=== PATIENT | male | born 1950 | race Caucasian/White ===

== ENCOUNTER 2017-08-19 11:29 | Emergency (ER) | payer OTHER, MEDICARE ==
[2017-08-19 11:36] VITALS: BP 146/72
[2017-08-19] MEDS ORDERED: HYDROCODONE/ACETAMINOPHEN 5-325 MG TABLET PO ONE (12:11)
[2017-08-19] MEDS ORDERED: PREDNISONE 20 MG TABLET PO ONE (12:11)
--- NOTE | 2017-08-19 12:14 | ER Document Report ---
ED Flu Like - General Chief Complaint: Flu Symptoms Stated Complaint: FLU SYMPTOMS Time Seen by Provider: 08/19/17 11:53 Mode of Arrival: Ambulatory Information source: Patient, [facility] Records Notes: This 67-year-old male patient comes emergency room complaining of a 9 day history of cough and congestion. He was in [place] when it started and came back just before [place]. He went to an urgent care on 08/15/2017, was diagnosed with a virus and prescribed Tessalon Perles and a Z-Tim. He has not improved. He reports clear mucus without fever. He has now developed pain in the left upper medial scapular back region. He suspects this may be due to all the coughing he has been doing. TRAVEL OUTSIDE OF THE [place] IN LAST 30 DAYS: No - Related Data Allergies/Adverse Reactions: Penicillins Allergy (Unknown, Verified 08/19/17 11:31) as child Past Medical History - General Information source: Patient, [facility] Records - Social History Smoking Status: Never Smoker Cigarette use (# per day): No Chew tobacco use (# tins/day): No Smoking Education Provided: No Frequency of alcohol use: None Drug Abuse: None Occupation: Retired Family History: Reviewed & Not Pertinent Patient has suicidal ideation: No Patient has homicidal ideation: No - Past Medical History Cardiac Medical History: Reports: Hx Hypercholesterolemia, Hx Hypertension Pulmonary Medical History: Reports: None EENT Medical History: Reports: None Neurological Medical History: Reports: None Endocrine Medical History: Reports: None Renal/ Medical History: Reports: None GI Medical History: Reports: None Musculoskeltal Medical History: Reports Hx Arthritis, Reports Hx Gout Skin Medical History: Reports None Psychiatric Medical History: Reports: None Traumatic Medical History: Reports: Other - Shoulder rotator cuff injury Past Surgical History: Reports: Hx Cholecystectomy, Hx Herniorrhaphy - Ventral hernia, Hx Inguinal Hernia - Left inguinal hernia, Hx Orthopedic Surgery - Carpal tunnel release - Immunizations Hx Diphtheria, Pertussis, Tetanus Vaccination: Yes Review of Systems - Review of Systems Constitutional: No symptoms reported. denies: Fever EENT: No symptoms reported Cardiovascular: No symptoms reported Respiratory: See HPI, Cough, Sputum Gastrointestinal: No symptoms reported Genitourinary: No symptoms reported Musculoskeletal: No symptoms reported Skin: No symptoms reported Hematologic/Lymphatic: No symptoms reported Neurological/Psychological: No symptoms reported Physical Exam - Vital signs Vitals: Temp Pulse Resp BP Pulse Ox 98.2 F 76 16 146/72 H 97 08/19/17 11:35 08/19/17 11:35 08/19/17 11:35 08/19/17 11:35 08/19/17 11:35 - General General appearance: Appears well, Alert In distress: None - HEENT Head: Normocephalic, Atraumatic Eyes: Normal Pupils: PERRL Neck: Normal - Respiratory Respiratory status: No respiratory distress Breath sounds: Nonproductive cough. No: Rhonchi, Stridor, Wheezing Chest palpation: Tender - There is some tenderness to palpate the left posterior chest in the inferior medial scapular region. - Cardiovascular Rhythm: Regular - Abdominal Inspection: Normal Distension: No distension Tenderness: Nontender - Back Back: Normal - Extremities General upper extremity: Normal inspection General lower extremity: Normal inspection - Neurological Neuro grossly intact: Yes Cognition: Normal Orientation: AAOx4 [place] Coma Scale Eye Opening: Spontaneous [place] Coma Scale Verbal: Oriented [place] Coma Scale Motor: Obeys Commands [place] Coma Scale Total: 15 Speech: Normal Motor strength normal: LUE, RUE, LLE, RLE Sensory: Normal - Psychological Associated symptoms: Normal affect, Normal mood Course - Vital Signs Vital signs: Temp Pulse Resp BP Pulse Ox 98.2 F 76 16 146/72 H 97 08/19/17 11:35 08/19/17 11:35 08/19/17 11:35 08/19/17 11:35 08/19/17 11:35 - Laboratory Result Diagrams: 08/19/17 12:30 08/19/17 12:30 Laboratory results interpreted by me: 08/19/17 08/19/17 12:30 12:30 RDW 14.9 H Carbon Dioxide 33 H BUN 21 H Est GFR (Non-Af Amer) 59 L - Diagnostic Test Radiology reviewed: Image reviewed, Reports reviewed - New right lower lobe airspace disease probably a developing pneumonia Discharge - Discharge Clinical Impression: Viral upper respiratory tract infection with cough Right lower lobe pneumonia Qualifiers: Pneumonia type: due to unspecified organism Qualified Code(s): J18.1 - Lobar pneumonia, unspecified organism Condition: Stable Disposition: HOME, SELF-CARE Additional Instructions: Upper Respiratory Illness You have a viral infection of the respiratory passages -- a "cold." This common infection causes nasal congestion, drainage, and often sore throat and cough. It is caused by a virus and is highly contagious. The disease usually lasts a week or more, though the worst symptoms are usually over in 3 or 4 days. There is no "cure" for the viral infection -- it must run its course. If there is a complication, such as bacterial infection in the nose, sinuses, middle ear, or bronchial tubes, antibiotics may be required, but antibiotics won 't affect the virus. If you smoke, you should STOP!! Drink plenty of fluids. A humidifier may help. An expectorant medication or decongestant may make you more comfortable. Use acetaminophen or ibuprofen for fever or aches. See the doctor if fever persists over two or three days, if there is any significant worsening of your symptoms, or if you simply fail to improve as expected. Pneumonia: Your chest x-ray indicates that you are developing pneumonia your right lower lung region. This is an infection of the lung tissue, usually caused by bacteria or a virus. Symptoms include cough, fever, shaking chills, chest pain, shortness of breath, and coughing up bloody sputum. Treatment for bacterial pneumonia includes rest, antibiotics for 10 days, increasing your clear liquid intake, a cool mist humidifier at your bedside, and fever medication. Often, a repeat chest X-ray is performed in a few weeks-- even if you feel better--to ascertain whether the infection has completely resolved and no underlying lung problem is present. You should call the physician if you develop persistent vomiting, high fever that does not respond to fever medication, increasing shortness of breath , confusion, or lethargy. Also, failure to improve within two to three days is an indication for re-examination. //////////////////////////////////////////////////////////////////////////////// //////////////////////////////////////////////////////////////////////////////// / Start the Doxycycline antibiotic today. Start the prednisone prescription tomorrow, you have had today's dose already. Take the hydrocodone prescription to help control your cough and back pain. You should also take Tylenol and ibuprofen for the back pain. Get Robitussin-DM to take to help suppress your cough and loosen mucus. Drink plenty of fluids, get plenty of rest. Follow-up with your primary care provider in 10-14 days for recheck, sooner if not improving. RETURN TO THE EMERGENCY ROOM IF ANY NEW OR WORSENING SYMPTOMS. Prescriptions: Doxycycline Hyclate 100 mg PO BID #20 tablet Hydrocodone/Acetaminophen [Hydrocodon-Acetaminophen 5-325] 1 each PO Q4 PRN #15 tablet PRN Reason:
[2017-08-19 12:42] LABS: ABSOLUTE EOSINOPHILS # (AUTO) 0.2 10^3/uL (0.0-0.6); ABSOLUTE MONOCYTES (AUTO) 0.5 10^3/uL (0.1-1.4); BASOPHILS % (AUTO) 0.7 % (0-2); EOSINOPHILS % (AUTO) 2.6 % (0-6); HEMATOCRIT 42.4 % (37.9-51.0); HEMOGLOBIN 14.5 g/dL (13.5-17.0); LYMPHOCYTES % (AUTO) 29.4 % (13-45); MEAN CORPUSCULAR HGB CONC 34.1 g/dL (32.0-36.0); MEAN CORPUSCULAR VOLUME 85 fl (80-97); PLATELET COUNT 244 10^3/uL (150-450); RED BLOOD COUNT 4.99 10^6/uL (4.35-5.55); RED CELL DISTRIBUTION WIDTH 14.9 % (11.5-14.0); SEGMENTED NEUTROPHILS % (AUTO) 59.3 % (42-78); TOTAL CELLS COUNTED % (AUTO) 100 %; WHITE BLOOD COUNT 6.8 10^3/uL (4.0-10.5)
--- NOTE | 2017-08-19 12:52 | RADIOLOGY REPORT (SQ) ---
EXAM DESCRIPTION: CHEST PA/LAT COMPLETED DATE/TIME: 08/19/2017 12:41 pm REASON FOR STUDY: Cough, congestion, left posterior chest pain COMPARISON: 05/01/2016 EXAM PARAMETERS: NUMBER OF VIEWS: two views TECHNIQUE: Digital Frontal and Lateral radiographic views of the chest acquired. RADIATION DOSE: NA LIMITATIONS: none FINDINGS: LUNGS AND PLEURA: Stable scarring left lung base. New right lower lobe airspace disease c ompatible with pneumonia. MEDIASTINUM AND HILAR STRUCTURES: No masses or contour abnormalities. HEART AND VASCULAR STRUCTURES: Heart stable in size. No evidence for failure. BONES: No acute findings. HARDWARE: None in the chest. OTHER: No other significant finding. IMPRESSION: NEW RIGHT LOWER LOBE AIRSPACE DISEASE COMPATIBLE WITH PNEUMONIA. RECOMMEND FOLLOWUP RAD IOGRAPHS IN 4 TO 6 WEEKS TO ENSURE RESOLUTION. TECHNICAL DOCUMENTATION: JOB ID: [id number] [employer]- All Rights Reserved
[2017-08-19 12:58] LABS: ALANINE AMINOTRANSFERASE 24 U/L (21-72); ALBUMIN 4.4 g/dL (3.5-5.0); ALKALINE PHOSPHATASE 68 U/L (38-126); ANION GAP 11 (5-19); ASPARTATE AMINO TRANSFERASE 21 U/L (17-59); BILIRUBIN,DIRECT 0.2 mg/dL (0.0-0.4); BILIRUBIN,TOTAL 0.6 mg/dL (0.2-1.3); BLOOD UREA NITROGEN 21 mg/dL (7-20); CALCIUM 9.9 mg/dL (8.4-10.2); CARBON DIOXIDE 33 mmol/L (22-30); CHLORIDE 100 mmol/L (98-107); GLUCOSE 91 mg/dL (75-110); POTASSIUM 4.2 mmol/L (3.6-5.0); SODIUM 143.6 mmol/L (137-145); TOTAL PROTEIN 7.4 g/dL (6.3-8.2)
[2017-08-19] MEDS ORDERED: INFLUENZA ADLT QUAD (36MOS+) 2017-18 VAC 0.5 ML SYR IM ONE (13:49)
== END 2017-08-19 14:00 | disposition home or self-care (01) ==
LOC: ER 11:29
DX: J18.1 Lobar pneumonia, unspecified organism (principal); J06.9 Acute upper respiratory infection, unspecified; B97.89 Other viral agents as the cause of diseases classified elsewhere; Z23 Encounter for immunization; R05 Cough; M54.89 Other dorsalgia; Z88.0 Allergy status to penicillin; I10 Essential (primary) hypertension
CPT/HCPCS: 99283; 36415; 85025; 80053; 71046; 90686; G0008; J7512; 90471

== ENCOUNTER 2018-02-08 10:24 | Emergency (ER) | payer OTHER, MEDICARE, MEDICAID ==
--- NOTE | 2018-02-08 10:56 | ER Document Report ---
ED Medical Screen (RME) - General Chief Complaint: Flank Pain Stated Complaint: FLANK PAIN Time Seen by Provider: 02/08/18 10:36 Mode of Arrival: Ambulatory Information source: Patient Notes: 67-year-old male presents with complaints of constipation has been ongoing for a while as well as 2 weeks of left flank pain. Patient notes it hurts with range of motion denies any urinary complaints denies any fevers or chills I have greeted and performed a rapid initial assessment of this patient. A comprehensive ED assessment and evaluation of the patient, analysis of test results and completion of the medical decision making process will be conducted by additional ED providers. PHYSICAL EXAMINATION: GENERAL: Well-appearing, well-nourished and in no acute distress. HEAD: Atraumatic, normocephalic. EYES: Pupils equal round extraocular movements intact, conjunctiva are normal. ENT: Nares patent NECK: Normal range of motion LUNGS: No respiratory distress Musculoskeletal: Normal range of motion NEUROLOGICAL: Normal speech, normal gait. PSYCH: Normal mood, normal affect. SKIN: Warm, Dry, normal turgor, no rashes or lesions noted. TRAVEL OUTSIDE OF THE [place] IN LAST 30 DAYS: No - Related Data Allergies/Adverse Reactions: Penicillins Allergy (Unknown, Verified 08/19/17 11:31) as child Past Medical History - Social History Chew tobacco use (# tins/day): No Frequency of alcohol use: Occasional Drug Abuse: None - Past Medical History Cardiac Medical History: Reports: Hx Hypercholesterolemia, Hx Hypertension Neurological Medical History: Denies: Hx Seizures Renal/ Medical History: Denies: Hx Peritoneal Dialysis Musculoskeltal Medical History: Reports Hx Arthritis, Reports Hx Gout Past Surgical History: Reports: Hx Cholecystectomy, Hx Herniorrhaphy - Ventral hernia, Hx Inguinal Hernia - Left inguinal hernia, Hx Orthopedic Surgery - Carpal tunnel release - Immunizations Hx Diphtheria, Pertussis, Tetanus Vaccination: Yes Physical Exam - Vital signs Vitals: Temp Pulse Resp BP Pulse Ox 98.6 F 68 16 155/76 H 95 02/08/18 10:29 02/08/18 10:29 02/08/18 10:29 02/08/18 10:29 02/08/18 10:29 Course - Vital Signs Vital signs: Temp Pulse Resp BP Pulse Ox 98.6 F 68 16 155/76 H 95 02/08/18 10:29 02/08/18 10:29 02/08/18 10:29 02/08/18 10:29 02/08/18 10:29
[2018-02-08 11:25] LABS: ABSOLUTE BASOPHILS # (AUTO) 0.1 10^3/uL (0.0-0.2); ABSOLUTE EOSINOPHILS # (AUTO) 0.1 10^3/uL (0.0-0.6); ABSOLUTE MONOCYTES (AUTO) 0.6 10^3/uL (0.1-1.4); BASOPHILS % (AUTO) 0.9 % (0-2); EOSINOPHILS % (AUTO) 1.6 % (0-6); HEMATOCRIT 43.2 % (37.9-51.0); HEMOGLOBIN 15.1 g/dL (13.5-17.0); LYMPHOCYTES % (AUTO) 26.1 % (13-45); MEAN CORPUSCULAR HEMOGLOBIN 29.9 pg (27.0-33.4); MEAN CORPUSCULAR HGB CONC 34.9 g/dL (32.0-36.0); MEAN CORPUSCULAR VOLUME 86 fl (80-97); MONOCYTES % (AUTO) 7.8 % (3-13); PLATELET COUNT 243 10^3/uL (150-450); RED BLOOD COUNT 5.04 10^6/uL (4.35-5.55); RED CELL DISTRIBUTION WIDTH 14.4 % (11.5-14.0); SEGMENTED NEUTROPHILS % (AUTO) 63.6 % (42-78); TOTAL CELLS COUNTED % (AUTO) 100 %; WHITE BLOOD COUNT 7.8 10^3/uL (4.0-10.5)
[2018-02-08 11:30] LABS: APPEARANCE,URINE SLIGHTLY-CLOUDY; BILIRUBIN,URINE NEGATIVE (NEGATIVE); COLOR,URINE AMBER; GLUCOSE, URINE NEGATIVE (NEGATIVE); KETONES,URINE NEGATIVE (NEGATIVE); LEUKOCYTE ESTERASE,URINE NEGATIVE (NEGATIVE); NITRITE,URINE NEGATIVE (NEGATIVE); PROTEIN,URINE 100 mg/dL (NEGATIVE); URINE SPECIFIC GRAVITY 1.026
--- NOTE | 2018-02-08 11:30 | RADIOLOGY REPORT (SQ) ---
EXAM DESCRIPTION: CT LTD RENAL STONE PROTOCOL ON COMPLETED DATE/TIME: 02/08/2018 11:16 am REASON FOR STUDY: left flank pain, constipation COMPARISON: 2016 TECHNIQUE: CT scan of the abdomen and pelvis performed without intravenous or oral contrast. Images reviewed with lung, soft tissue, and bone windows. Reconstructed coronal and sagittal MPR images revi ewed. All images stored on PACS. All CT scanners at this facility use dose modulation, iterative reconstruction, and/or weight based d osing when appropriate to reduce radiation dose to as low as reasonably achievable (ALARA). [facility]: Dose Right [facility]: CareDose [facility]: Dose Right [facility]: Teradose 4D [facility]: [employer] RADIATION DOSE: CT Rad equipment meets quality standard of care and radiation dose reduction techniq ues were employed. CTDIvol: 16.9 mGy. DLP: 938 mGy-cm.mGy. LIMITATIONS: None. FINDINGS: LOWER CHEST: No significant findings. No nodules or infiltrates. NON-CONTRASTED LIVER, SPLEEN, ADRENALS: Probable small cysts in the liver. No overtly worrisome lesi on. Limited assessment of the spleen, minimally heterogeneous but without discrete mass or enlargeme nt. No adrenal pathology. PANCREAS: No masses. No peripancreatic inflammatory changes. GALLBLADDER: Not seen, either contracted or absent. No surgical clips or regional calcifications. RIGHT KIDNEY AND URETER: No solid masses. No significant calcification. No hydronephrosis or hydroure ter. LEFT KIDNEY AND URETER: No solid masses. No significant calcification. No hydronephrosis or hydrouret er. AORTA AND RETROPERITONEUM: Atherosclerotic without evidence of aneurysm. No retroperitoneal mass or hematoma. BOWEL AND PERITONEAL CAVITY: No obvious masses or inflammatory changes. No free fluid. APPENDIX: Normal. PELVIS, BLADDER, AND ABDOMINAL WALL:Bladder decompressed but without gross stones. No pelvic mass or free fluid. No bowel containing abdominal wall hernia. BONES: No significant findings. OTHER: No other significant finding. IMPRESSION: 1. No acute or suspicious abdominopelvic abnormality. Specifically, no evidence of urin isabell stones or obstruction. TECHNICAL DOCUMENTATION: JOB ID: [id number] Quality ID # [id number]: Final reports with documentation of one or more dose reduction techniques (e.g., Au tomated exposure control, adjustment of the mA and/or kV according to patient size, use of iterative reconstruction technique) 2010 [employer]- All Rights Reserved Reading location - IP/workstation name: [email or web address]
[2018-02-08 11:42] LABS: ALANINE AMINOTRANSFERASE 23 U/L (21-72); ALBUMIN 4.3 g/dL (3.5-5.0); ALKALINE PHOSPHATASE 79 U/L (38-126); ANION GAP 9 (5-19); ASPARTATE AMINO TRANSFERASE 22 U/L (17-59); BILIRUBIN,DIRECT 0.4 mg/dL (0.0-0.4); BILIRUBIN,TOTAL 0.7 mg/dL (0.2-1.3); BLOOD UREA NITROGEN 24 mg/dL (7-20); CALCIUM 9.3 mg/dL (8.4-10.2); CARBON DIOXIDE 34 mmol/L (22-30); CHLORIDE 101 mmol/L (98-107); GLUCOSE 93 mg/dL (75-110); POTASSIUM 3.9 mmol/L (3.6-5.0); SODIUM 144.1 mmol/L (137-145); TOTAL PROTEIN 7.6 g/dL (6.3-8.2)
[2018-02-08 11:56] VITALS: BP 164/72
--- NOTE | 2018-02-08 11:57 | ER Document Report ---
ED General - General Chief Complaint: Flank Pain Stated Complaint: FLANK PAIN Time Seen by Provider: 02/08/18 10:36 Mode of Arrival: Ambulatory Information source: Patient Notes: 67-year-old male presents with complaints of constipation has been ongoing for a while as well as 2 weeks of left flank pain. Patient notes it hurts with range of motion denies any urinary complaints denies any fevers or chills TRAVEL OUTSIDE OF THE [place] IN LAST 30 DAYS: No - HPI Onset: Other - 2 week duration Onset/Duration: Persistent Quality of pain: Achy Severity: Mild Pain Level: 1 Associated symptoms: Body/muscle aches Exacerbated by: Movement Relieved by: Denies Similar symptoms previously: No Recently seen / treated by doctor: No - Related Data Allergies/Adverse Reactions: Penicillins Allergy (Unknown, Verified 08/19/17 11:31) as child Past Medical History - General Information source: Patient - Social History Smoking Status: Never Smoker Cigarette use (# per day): No Chew tobacco use (# tins/day): No Smoking Education Provided: No Frequency of alcohol use: Occasional Drug Abuse: None Family History: Reviewed & Not Pertinent Patient has suicidal ideation: No Patient has homicidal ideation: No - Past Medical History Cardiac Medical History: Reports: Hx Hypercholesterolemia, Hx Hypertension Neurological Medical History: Denies: Hx Seizures Renal/ Medical History: Denies: Hx Peritoneal Dialysis Musculoskeltal Medical History: Reports Hx Arthritis, Reports Hx Gout Past Surgical History: Reports: Hx Cholecystectomy, Hx Herniorrhaphy - Ventral hernia, Hx Inguinal Hernia - Left inguinal hernia, Hx Orthopedic Surgery - Carpal tunnel release - Immunizations Hx Diphtheria, Pertussis, Tetanus Vaccination: Yes Review of Systems - Review of Systems Notes: REVIEW OF SYSTEMS: CONSTITUTIONAL : Denies fever, chills, or sweats. Denies recent illness. EENT: Denies eye, ear, throat, or mouth pain or symptoms. Denies nasal or sinus congestion or discharge. Denies throat, tongue, or mouth swelling or difficulty swallowing. CARDIOVASCULAR: Denies chest pain. Denies palpitations or racing or irregular heart beat. Denies ankle edema. RESPIRATORY: Denies cough, cold, or chest congestion. Denies shortness of breath, difficulty breathing, or wheezing. GASTROINTESTINAL: Denies abdominal pain or distention. Denies nausea, vomiting , or diarrhea. Denies blood in vomitus, stools, or per rectum. Denies black, tarry stools. Denies constipation. GENITOURINARY: Denies difficulty urinating, painful urination, burning, frequency, blood in urine, or discharge. MUSCULOSKELETAL: Admits to flank pain SKIN: Denies rash, lesions or sores. HEMATOLOGIC : Denies easy bruising or bleeding. LYMPHATIC: Denies swollen, enlarged glands. NEUROLOGICAL: Denies confusion or altered mental status. Denies passing out or loss of consciousness. Denies dizziness or lightheadedness. Denies headache. Denies weakness or paralysis or loss of use of either side. Denies problems with gait or speech. Denies sensory loss, numbness, or tingling. Denies seizures. PSYCHIATRIC: Denies anxiety or stress. Denies depression, suicidal ideation, or homicidal ideation. ALL OTHER SYSTEMS REVIEWED AND NEGATIVE. Dictation was performed using [employer] voice recognition software PHYSICAL EXAMINATION: GENERAL: Well-appearing, well-nourished and in no acute distress. HEAD: Atraumatic, normocephalic. EYES: Pupils equal round and reactive to light, extraocular movements intact, sclera anicteric, conjunctiva are normal. ENT: Nares patent, oropharynx clear without exudates. Moist mucous membranes. NECK: Normal range of motion, supple without lymphadenopathy LUNGS: Breath sounds clear to auscultation bilaterally and equal. No wheezes rales or rhonchi. HEART: Regular rate and rhythm without murmurs ABDOMEN: Soft, nontender, nondistended abdomen. No guarding, no rebound. No masses appreciated. Musculoskeletal: Normal range of motion, no pitting or edema. No cyanosis. Pain with range of motion of the left flank NEUROLOGICAL: Cranial nerves grossly intact. Normal speech, normal gait. Normal sensory, motor exams PSYCH: Normal mood, normal affect. SKIN: Warm, Dry, normal turgor, no rashes or lesions noted. Physical Exam - Vital signs Vitals: Temp Pulse Resp BP Pulse Ox 98.6 F 68 16 155/76 H 95 02/08/18 10:29 02/08/18 10:29 02/08/18 10:29 02/08/18 10:29 02/08/18 10:29 Course - Re-evaluation Re-evalutation: 02/08/18 12:15 Patient's lab work notes only a mild elevation in his creatinine and BUN, patient encouraged to increase his fluid intake, his CT noted no significant abnormality, he overall looks well is in no distress, patient does note some constipation as well he has been taking mag citrate and has been encouraged to not take more than a few days worth in a row, there is no FDA evaluation of this medication and I explained this to the patient. Overall this appears to be more of a musculoskeletal issue and patient will be started on prednisone After performing a Medical Screening Examination, I estimate there is LOW risk for EXPANDING OR RUPTURED ABDOMINAL AORTIC ANEURYSM, CAUDA EQUINA SYNDROME, EPIDURAL MASS LESION, or HERNIATED DISK CAUSING SEVERE SPINAL STENOSIS, thus I consider the discharge disposition reasonable. I have reevaluated this patient multiple times and no significant life threatening changes are noted. The patient and I have discussed the diagnosis and risks, and we agree with discharging home and close follow-up. We also discussed returning to the Emergency Department immediately if new or worsening symptoms occur with the understanding that symptoms and presentations can change. We have discussed the symptoms which are most concerning (e.g., saddle anesthesia, urinary or bowel incontinence or retention, changing or worsening pain) that necessitate immediate return. - Vital Signs Vital signs: Temp Pulse Resp BP Pulse Ox 98.7 F 64 16 164/72 H 98 02/08/18 11:55 02/08/18 11:55 02/08/18 10:29 02/08/18 11:55 02/08/18 11:55 - Laboratory Result Diagrams: 02/08/18 10:59 02/08/18 10:59 Laboratory results interpreted by me: 02/08/18 02/08/18 02/08/18 10:59 10:59 10:59 RDW 14.4 H Carbon Dioxide 34 H BUN 24 H Creatinine 1.27 H Est GFR (Non-Af Amer) 57 L Urine Protein 100 H Urine Urobilinogen 2.0 H - Diagnostic Test Radiology reviewed: Reports reviewed Discharge - Discharge Clinical Impression: Flank pain Constipation Qualifiers: Constipation type: unspecified constipation type Qualified Code(s): K59.00 - Constipation, unspecified Condition: Stable Disposition: HOME, SELF-CARE Instructions: Flank Pain ([facility]) Additional Instructions: Follow up with your physician tomorrow for further care or return to the ED IMMEDIATELY if symptoms worsen or new concerns occur. If you cannot afford to follow up with your primary care physician a list of low cost clinics have been provided at the end of your discharge papers as well. Prescriptions: Prednisone [Deltasone 20 mg Tablet] 3 tab PO DAILY 5 Days tablet
== END 2018-02-08 12:00 | disposition home or self-care (01) ==
LOC: ER 10:24
DX: R10.9 Unspecified abdominal pain (principal); K59.00 Constipation, unspecified; M79.1 Myalgia; E78.00 Pure hypercholesterolemia, unspecified; I10 Essential (primary) hypertension; Z88.0 Allergy status to penicillin; Z90.49 Acquired absence of other specified parts of digestive tract
CPT/HCPCS: 36415; 76380; 80053; 81001; 85025; 99284

== ENCOUNTER 2018-02-16 11:09 | Emergency (ER) | payer OTHER, MEDICARE, MEDICAID ==
--- NOTE | 2018-02-16 11:26 | ER Document Report ---
ED Medical Screen (RME) - General Chief Complaint: Flank Pain Stated Complaint: LEFT SIDE PAIN Time Seen by Provider: 02/16/18 11:23 Mode of Arrival: Ambulatory Information source: Patient Notes: 67 yr old male presents with complaints of continued left flank pain. pt seen by myself, noted to have normal ua and negative ct pt ntoes continued pain only with rom Patient denies any fevers or chills denies any nausea vomiting diarrhea patient denies any urinary complaints I have greeted and performed a rapid initial assessment of this patient. A comprehensive ED assessment and evaluation of the patient, analysis of test results and completion of the medical decision making process will be conducted by additional ED providers. PHYSICAL EXAMINATION: GENERAL: Well-appearing, well-nourished and in no acute distress. HEAD: Atraumatic, normocephalic. EYES: Pupils equal round extraocular movements intact, conjunctiva are normal. ENT: Nares patent NECK: Normal range of motion LUNGS: No respiratory distress Musculoskeletal: Normal range of motion NEUROLOGICAL: Normal speech, normal gait. PSYCH: Normal mood, normal affect. SKIN: Warm, Dry, normal turgor, no rashes or lesions noted. TRAVEL OUTSIDE OF THE [place] IN LAST 30 DAYS: No - Related Data Allergies/Adverse Reactions: Penicillins Allergy (Unknown, Verified 08/19/17 11:31) as child Past Medical History - Past Medical History Cardiac Medical History: Reports: Hx Hypercholesterolemia, Hx Hypertension Neurological Medical History: Denies: Hx Seizures Renal/ Medical History: Denies: Hx Peritoneal Dialysis Musculoskeltal Medical History: Reports Hx Arthritis, Reports Hx Gout Past Surgical History: Reports: Hx Cholecystectomy, Hx Herniorrhaphy - Ventral hernia, Hx Inguinal Hernia - Left inguinal hernia, Hx Orthopedic Surgery - Carpal tunnel release - Immunizations Hx Diphtheria, Pertussis, Tetanus Vaccination: Yes Physical Exam - Vital signs Vitals: Temp Pulse Resp BP Pulse Ox 98.5 F 69 16 130/57 H 96 02/16/18 11:13 02/16/18 11:13 02/16/18 11:13 02/16/18 11:13 02/16/18 11:13 Course - Vital Signs Vital signs: Temp Pulse Resp BP Pulse Ox 98.5 F 69 16 130/57 H 96 02/16/18 11:13 02/16/18 11:13 02/16/18 11:13 02/16/18 11:13 02/16/18 11:13
[2018-02-16 11:47] LABS: ABSOLUTE BASOPHILS # (AUTO) 0.1 10^3/uL (0.0-0.2); ABSOLUTE EOSINOPHILS # (AUTO) 0.2 10^3/uL (0.0-0.6); ABSOLUTE LYMPHOCYTES (AUTO) 2.1 10^3/uL (0.5-4.7); ABSOLUTE MONOCYTES (AUTO) 0.8 10^3/uL (0.1-1.4); ABSOLUTE NEUT (AUTO) 7.1 10^3/uL (1.7-8.2); EOSINOPHILS % (AUTO) 1.9 % (0-6); HEMATOCRIT 40.4 % (37.9-51.0); HEMOGLOBIN 13.9 g/dL (13.5-17.0); LYMPHOCYTES % (AUTO) 20.2 % (13-45); MEAN CORPUSCULAR HEMOGLOBIN 29.8 pg (27.0-33.4); MEAN CORPUSCULAR HGB CONC 34.5 g/dL (32.0-36.0); MEAN CORPUSCULAR VOLUME 87 fl (80-97); MONOCYTES % (AUTO) 7.7 % (3-13); PLATELET COUNT 224 10^3/uL (150-450); RED BLOOD COUNT 4.67 10^6/uL (4.35-5.55); RED CELL DISTRIBUTION WIDTH 14.8 % (11.5-14.0); SEGMENTED NEUTROPHILS % (AUTO) 69.2 % (42-78); TOTAL CELLS COUNTED % (AUTO) 100 %; WHITE BLOOD COUNT 10.2 10^3/uL (4.0-10.5)
[2018-02-16 12:02] LABS: ALANINE AMINOTRANSFERASE 22 U/L (21-72); ALBUMIN 3.9 g/dL (3.5-5.0); ALKALINE PHOSPHATASE 65 U/L (38-126); ANION GAP 11 (5-19); ASPARTATE AMINO TRANSFERASE 13 U/L (17-59); BILIRUBIN,DIRECT 0.3 mg/dL (0.0-0.4); BILIRUBIN,TOTAL 0.7 mg/dL (0.2-1.3); BLOOD UREA NITROGEN 30 mg/dL (7-20); CALCIUM 8.6 mg/dL (8.4-10.2); CARBON DIOXIDE 30 mmol/L (22-30); CHLORIDE 103 mmol/L (98-107); GLUCOSE 133 mg/dL (75-110); POTASSIUM 3.7 mmol/L (3.6-5.0); SODIUM 143.5 mmol/L (137-145); TOTAL PROTEIN 6.5 g/dL (6.3-8.2)
[2018-02-16 12:03] LABS: APPEARANCE,URINE CLEAR; BILIRUBIN,URINE NEGATIVE (NEGATIVE); COLOR,URINE YELLOW; GLUCOSE, URINE 50 mg/dL (NEGATIVE); KETONES,URINE NEGATIVE (NEGATIVE); LEUKOCYTE ESTERASE,URINE NEGATIVE (NEGATIVE); NITRITE,URINE NEGATIVE (NEGATIVE); PROTEIN,URINE NEGATIVE (NEGATIVE); UROBILINOGEN,URINE NEGATIVE mg/dL (<2.0)
--- NOTE | 2018-02-16 12:33 | ER Document Report ---
ED General <SOLE AVILA - Last Filed: 02/16/18 12:34> - General Mode of Arrival: Ambulatory Information source: Patient TRAVEL OUTSIDE OF THE [place] IN LAST 30 DAYS: No <KIA AZEVEDO - Last Filed: 02/16/18 12:45> - General Chief Complaint: Flank Pain Stated Complaint: LEFT SIDE PAIN Time Seen by Provider: 02/16/18 11:23 Notes: Patient is a 67 year old male with HTN, hyperlipidemia, and a history of gout presents to the emergency department complaining of left flank pain onset approximately 2.5 weeks ago. Patient was seen and discharged from this ED on for a similar complaint. During that time a negative urinalysis and CT scan was obtained. Patient states he only notices the pain randomly with certain movements. Patient denies fevers, chills, nausea, vomiting, or dysuria. (KIA AZEVEDO) - Related Data Allergies/Adverse Reactions: Penicillins Allergy (Unknown, Verified 02/16/18 11:26) as child Past Medical History - General Information source: Patient - Social History Smoking Status: Never Smoker Chew tobacco use (# tins/day): No Frequency of alcohol use: Occasional Drug Abuse: None Family History: Reviewed & Not Pertinent Patient has suicidal ideation: No Patient has homicidal ideation: No - Past Medical History Cardiac Medical History: Reports: Hx Hypercholesterolemia, Hx Hypertension Musculoskeltal Medical History: Reports Hx Arthritis, Reports Hx Gout Past Surgical History: Reports: Hx Cholecystectomy, Hx Herniorrhaphy - Ventral hernia, Hx Inguinal Hernia - Left inguinal hernia, Hx Orthopedic Surgery - Carpal tunnel release - Immunizations Hx Diphtheria, Pertussis, Tetanus Vaccination: Yes <KIA AZEVEDO - Last Filed: 02/16/18 12:45> Review of Systems - Review of Systems Constitutional: No symptoms reported EENT: No symptoms reported Cardiovascular: No symptoms reported Respiratory: No symptoms reported Gastrointestinal: No symptoms reported Genitourinary: See HPI, Flank pain Male Genitourinary: No symptoms reported Musculoskeletal: See HPI Skin: No symptoms reported Hematologic/Lymphatic: No symptoms reported Neurological/Psychological: No symptoms reported -: Yes All other systems reviewed and negative <KIA AZEVEDO - Last Filed: 02/16/18 12:45> Physical Exam - General General appearance: Appears well, Alert In distress: None - HEENT Head: Normocephalic, Atraumatic Eyes: Normal Conjunctiva: Normal Extraocular movements intact: Yes Pupils: PERRL Neck: Normal - Respiratory Respiratory status: No respiratory distress Chest status: Nontender Breath sounds: Normal Chest palpation: Normal - Cardiovascular Rhythm: Regular Heart sounds: Normal auscultation Murmur: No Friction rub: No Gallop: None auscultated - Abdominal Inspection: Obese - Back Back: Normal, Tender - Left flank point tender to palpation. No rashes or blisters. - Extremities General upper extremity: Normal ROM General lower extremity: Normal ROM - Neurological Neuro grossly intact: Yes Cognition: Normal Orientation: AAOx4 [place] Coma Scale Eye Opening: Spontaneous [place] Coma Scale Verbal: Oriented [place] Coma Scale Motor: Obeys Commands Dom[place] Coma Scale Total: 15 Speech: Normal - Psychological Associated symptoms: Normal affect, Normal mood - Skin Skin Temperature: Warm Skin Moisture: Dry Skin Color: Normal <KIA AZEVEDO - Last Filed: 02/16/18 12:45> - Vital signs Vitals: Temp Pulse Resp BP Pulse Ox 98.5 F 69 16 130/57 H 96 02/16/18 11:13 02/16/18 11:13 02/16/18 11:13 02/16/18 11:13 02/16/18 11:13 Course - Laboratory Result Diagrams: 02/16/18 11:35 02/16/18 11:35 <SOLE AVILA - Last Filed: 02/16/18 12:34> - Laboratory Result Diagrams: 02/16/18 11:35 02/16/18 11:35 <KIA AZEVEDO - Last Filed: 02/16/18 12:45> - Re-evaluation Re-evalutation: 02/16/18 12:37 The patient was extensively evaluated for the second time with lab work and urinalysis. 1 week ago he had a CT scan that showed no acute findings, showing only a known left renal cortical cyst. Physical exam a week ago and today is consistent with left flank muscle strain. Total CK is unremarkable as is the urinalysis and the CBC. (SOLE AVILA) - Vital Signs Vital signs: Temp Pulse Resp BP Pulse Ox 98.5 F 69 16 130/57 H 96 02/16/18 11:13 02/16/18 11:13 07/01/18 11:13 02/16/18 11:13 02/16/18 11:13 - Laboratory Laboratory results interpreted by me: 02/16/18 02/16/18 02/16/18 11:15 11:35 11:35 RDW 14.8 H BUN 30 H Glucose 133 H AST 13 L Urine Glucose (UA) 50 H Discharge <SOLE AVILA - Last Filed: 02/16/18 12:34> <KIA AZEVEDO - Last Filed: 02/16/18 12:45> - Discharge Clinical Impression: Pain in abdominal muscle of left flank Additional Instructions: Flank Pain: Pain in the flank can be caused by a muscle strain or spasm. Sometimes a kidney stone causes pain, but can't be found on our tests. Infection in the kidney should be evident on a urine test. Early shingles can occasionally cause flank pain, without the rash that proves the diagnosis. On rare occasions, disease of the pancreas, aorta, spleen, or colon can create pain in the flank. At this time, there's no evidence of a dangerous condition, and it seems safe for you to be at home. Blood in the urine, urgency to urinate frequently, and pain that radiates to the groin can indicate a kidney stone. Fever may mean that the pain is due to infection, either of the kidney or the colon (diverticulitis). If your pain is early shingles, you should develop an eruption of blisters in the painful area within a few days. Call the doctor or return if you have pain that is spreading or becoming more severe, pain that does not resolve with time, fever, or any other new symptoms. The pain in your left flank region seems to be coming from the muscles. This is probably due to a strain that occurred up to a week prior to the onset of the pain. Treating the pain with Tylenol and ibuprofen or Aleve should be adequate. Try to avoid activities that tends to make it hurt worse. Be sure to drink plenty of fluids when you are taking medication for your pain. Follow-up with your doctor if not improving over the next 1-2 weeks. RETURN TO THE EMERGENCY ROOM IF ANY NEW OR WORSENING SYMPTOMS. Milagrosibe Attestation: 02/16/18 12:38 I personally performed the services described in the documentation, reviewed and edited the documentation which was dictated to the scribe in my presence, and it accurately records my words and actions. (SOLE AVILA) Scribe Documentation - Scribe Written by Eduin:: Eduin Westbrook, 02/16/2018 12:45 acting as scribe for :: Zach <KIA AZEVEDO - Last Filed: 02/16/18 12:45>
[2018-02-16 12:43] VITALS: BP 133/61
== END 2018-02-16 12:43 | disposition home or self-care (01) ==
LOC: ER 11:09
DX: R10.9 Unspecified abdominal pain (principal); I10 Essential (primary) hypertension; E78.5 Hyperlipidemia, unspecified
CPT/HCPCS: 36415; 80053; 81001; 85025; 99284

== ENCOUNTER 2018-12-06 13:38 | Emergency (ER) | payer OTHER, MEDICARE ==
[2018-12-06] MEDS ORDERED: MORPHINE SULFATE 10 MG/ML INJ IV ONE (14:00)
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
--- NOTE | 2018-12-06 16:14 | RADIOLOGY REPORT (SQ) ---
EXAM DESCRIPTION: FINGER LEFT COMPLETED DATE/TIME: 12/06/2018 4:04 pm REASON FOR STUDY: 5th digit reduction attempt COMPARISON: 12/06/2018 NUMBER OF VIEWS: Three views. TECHNIQUE: AP, lateral, and oblique images acquired of the left fifth finger. LIMITATIONS: None. FINDINGS: MINERALIZATION: Normal. BONES: Slight improved alignment of the fractured proximal phalanx from the initial images. SOFT TISSUES: No soft tissue swelling. No foreign body. OTHER: No other significant finding. IMPRESSION: Slight improved alignment of the fractured proximal phalanx of the 5th digit compare wit h the initial images. TECHNICAL DOCUMENTATION: JOB ID: [id number] [employer]- All Rights Reserved Reading location - IP/workstation name: [email or web address]
[2018-12-06 16:43] VITALS: BP 114/60
== END 2018-12-06 16:44 | disposition home or self-care (01) ==
LOC: ER 13:38
PROC: 0PSVXZZ Reposition Left Finger Phalanx, External Approach (ICD-10-PCS; principal; 2018-12-06)
DX: S62.617A Displaced fracture of proximal phalanx of left little finger, initial encounter for closed fracture (principal); M25.532 Pain in left wrist; M79.642 Pain in left hand; V87.7XXA Person injured in collision between other specified motor vehicles (traffic), initial encounter; I10 Essential (primary) hypertension
CPT/HCPCS: 99283; 96374; 73140; 73130; 73110; 26725; J2270

== ENCOUNTER 2019-03-06 20:16 | Emergency (ER) | payer MEDICARE, OTHER ==
--- NOTE | 2019-03-06 21:20 | ER Document Report ---
ED Medical Screen (RME) - General Chief Complaint: Breathing Difficulty Stated Complaint: DIFFICULTY BREATHING Time Seen by Provider: 03/06/19 21:17 Primary Care Provider: [facility] [[facility]] - Follow up as needed Mode of Arrival: Ambulatory Information source: Patient Notes: Patient presents with a complaint of change in his breathing pattern that sta rted yesterday. Patient denies any cough cold symptoms nausea or vomiting. Patient denies any chest pain. hx: Gout, hypertension, cholecystectomy, hernia surgery I have greeted and performed a rapid initial assessment of this patient. A comprehensive ED assessment and evaluation of the patient, analysis of test results and completion of the medical decision making process will be conducted by additional ED providers. TRAVEL OUTSIDE OF THE [place] IN LAST 30 DAYS: No - Related Data Allergies/Adverse Reactions: Penicillins Allergy (Unknown, Verified 03/06/19 20:48) as child Past Medical History - Past Medical History Cardiac Medical History: Reports: Hx Hypercholesterolemia, Hx Hypertension Neurological Medical History: Denies: Hx Seizures Renal/ Medical History: Denies: Hx Peritoneal Dialysis Musculoskeltal Medical History: Reports Hx Arthritis, Reports Hx Gout Past Surgical History: Reports: Hx Cholecystectomy, Hx Herniorrhaphy - Ventral hernia, Hx Inguinal Hernia - Left inguinal hernia, Hx Orthopedic Surgery - Carpal tunnel release - Immunizations Hx Diphtheria, Pertussis, Tetanus Vaccination: Yes Physical Exam - Vital signs Vitals: Temp Pulse Resp BP Pulse Ox 98.3 F 73 16 149/72 H 96 03/06/19 20:22 03/06/19 20:22 03/06/19 20:22 03/06/19 20:22 03/06/19 20:22 - Respiratory Respiratory status: No respiratory distress. No: Labored, Tachypnea Breath sounds: Normal Chest palpation: Normal - Cardiovascular Rhythm: Regular Course - Vital Signs Vital signs: Temp Pulse Resp BP Pulse Ox 98.3 F 73 16 149/72 H 96 03/06/19 20:22 03/06/19 20:22 03/06/19 20:22 03/06/19 20:22 03/06/19 20:22 Doctor's Discharge - Discharge Referrals: [facility] [[facility]] - Follow up as needed
[2019-03-06 22:12] LABS: ABSOLUTE BASOPHILS # (AUTO) 0.1 10^3/uL (0.0-0.2); ABSOLUTE EOSINOPHILS # (AUTO) 0.1 10^3/uL (0.0-0.6); HEMOGLOBIN 14.4 g/dL (13.5-17.0); MEAN CORPUSCULAR VOLUME 87 fl (80-97); RED CELL DISTRIBUTION WIDTH 13.9 % (11.5-14.0); TOTAL CELLS COUNTED % (AUTO) 100 %; WHITE BLOOD COUNT 7.5 10^3/uL (4.0-10.5)
[2019-03-06 22:17] LABS: ABSOLUTE LYMPHOCYTES (AUTO) 2.2 10^3/uL (0.5-4.7); ABSOLUTE MONOCYTES (AUTO) 0.6 10^3/uL (0.1-1.4); ABSOLUTE NEUT (AUTO) 4.4 10^3/uL (1.7-8.2); BASOPHILS % (AUTO) 0.8 % (0-2); HEMATOCRIT 42.1 % (37.9-51.0); LYMPHOCYTES % (AUTO) 30.1 % (13-45); MEAN CORPUSCULAR HEMOGLOBIN 29.9 pg (27.0-33.4); MEAN CORPUSCULAR HGB CONC 34.3 g/dL (32.0-36.0); MONOCYTES % (AUTO) 8.2 % (3-13); PLATELET COUNT 231 10^3/uL (150-450); RED BLOOD COUNT 4.82 10^6/uL (4.35-5.55); SEGMENTED NEUTROPHILS % (AUTO) 58.9 % (42-78)
[2019-03-06 22:26] LABS: INTERNATIONAL RATION (INR) 1.04; PROTHROMBIN TIME 13.6 SEC (11.4-15.4)
[2019-03-06 22:27] LABS: PARTIAL THROMBOPLASTIN TIME 31.5 SEC (23.5-35.8)
[2019-03-06 22:31] LABS: ALANINE AMINOTRANSFERASE 19 U/L (21-72); ALBUMIN 4.4 g/dL (3.5-5.0); ALKALINE PHOSPHATASE 70 U/L (38-126); ANION GAP 9 (5-19); ASPARTATE AMINO TRANSFERASE 25 U/L (17-59); BILIRUBIN,DIRECT 0.3 mg/dL (0.0-0.4); BILIRUBIN,TOTAL 0.5 mg/dL (0.2-1.3); BLOOD UREA NITROGEN 30 mg/dL (7-20); CALCIUM 9.4 mg/dL (8.4-10.2); CARBON DIOXIDE 30 mmol/L (22-30); CHLORIDE 103 mmol/L (98-107); GLUCOSE 114 mg/dL (75-110); POTASSIUM 3.7 mmol/L (3.6-5.0); SODIUM 142.2 mmol/L (137-145); TOTAL PROTEIN 7.6 g/dL (6.3-8.2)
--- NOTE | 2019-03-06 22:41 | RADIOLOGY REPORT (SQ) ---
EXAM DESCRIPTION: XR CHEST 2 VIEWS COMPLETED DATE/TME: 03/06/2019 21:18 CLINICAL HISTORY: 68 years, Male, altered breathing pattern COMPARISON: 09/07/2017. NUMBER OF VIEWS: 2 TECHNIQUE: Two-view, PA and lateral projections of the chest were obtained. LIMITATIONS: None. FINDINGS: Stable cardiac and mediastinal silhouette. Heart size is mildly prominent. Tortuous atherosclerotic thoracic aorta. Lungs are clear without focal opacity, pneumothorax or pleural effusions. LEFT linear basilar opacity compatible with subsegmental atelectasis or scarring stable in comparison to the previous examination. The visualized bones reveal degenerative change. IMPRESSION: No acute cardiopulmonary abnormalities. copyright 2010 [employer]- All Rights Reserved
--- NOTE | 2019-03-06 23:28 | ER Document Report ---
ED General - General Chief Complaint: Breathing Difficulty Stated Complaint: DIFFICULTY BREATHING Time Seen by Provider: 03/06/19 21:17 Primary Care Provider: REENA CRUZ MD [ACTIVE STAFF] - Follow up as needed [facility] [Primary Care Provider] - Follow up as needed Mode of Arrival: Ambulatory TRAVEL OUTSIDE OF THE [place] IN LAST 30 DAYS: No - HPI Notes: Patient is a 68-year-old gentleman who presents to the emergency department for evaluation. He states he is just "not breathing right." I asked him if he means that he feels short of breath. He states no. He states he feels that he is breathing differently, or notice it more at rest. He denies any chest pain. No cough. No fevers or chills. No nausea or vomiting. States his been taking his medications as prescribed. - Related Data Allergies/Adverse Reactions: Penicillins Allergy (Unknown, Verified 03/06/19 20:48) as child Past Medical History - General Information source: Patient - Social History Smoking Status: Never Smoker Chew tobacco use (# tins/day): No Frequency of alcohol use: Occasional Drug Abuse: None Family History: Reviewed & Not Pertinent Patient has suicidal ideation: No Patient has homicidal ideation: No - Past Medical History Cardiac Medical History: Reports: Hx Hypercholesterolemia, Hx Hypertension Neurological Medical History: Denies: Hx Seizures Renal/ Medical History: Denies: Hx Peritoneal Dialysis Musculoskeletal Medical History: Reports Hx Arthritis, Reports Hx Gout Past Surgical History: Reports: Hx Cholecystectomy, Hx Herniorrhaphy - Ventral hernia, Hx Inguinal Hernia - Left inguinal hernia, Hx Orthopedic Surgery - Carpal tunnel release - Immunizations Hx Diphtheria, Pertussis, Tetanus Vaccination: Yes Review of Systems - Review of Systems Constitutional: No symptoms reported EENT: No symptoms reported Cardiovascular: No symptoms reported Respiratory: See HPI Gastrointestinal: No symptoms reported Genitourinary: No symptoms reported Musculoskeletal: No symptoms reported Skin: No symptoms reported Neurological/Psychological: No symptoms reported Physical Exam - Vital signs Vitals: Temp Pulse Resp BP Pulse Ox 98.3 F 73 16 149/72 H 96 03/06/19 20:22 03/06/19 20:22 03/06/19 20:22 03/06/19 20:22 03/06/19 20:22 - Notes Notes: Vital signs reviewed, please refer to chart. Head is normocephalic, atraumatic. Pupils equal round, reactive to light. Neck is supple without meningismus. Heart is irregularly irregular. Lungs are clear to auscultation bilaterally. Abdomen is soft, nontender, normoactive bowel sounds throughout. Extremities without cyanosis, clubbing. 1+ pitting edema noted to bilateral lower extremities without posterior calf tenderness. Peripheral pulses are equal. Skin is warm and dry. Patient is awake, alert, neurological exam is nonfocal. Course - Re-evaluation Re-evalutation: 03/06/19 23:24 Patient presents to the emergency department for evaluation. He was placed on a sales order processor and IV was established. Laboratory investigations were obtained, as was EKG. Initial EKG did have a mild wandering baseline. This was repeated. EKG does show new onset atrial fibrillation, but rate is controlled. This was a change from prior study. Patient relates no history of atrial fibrillation. At this time, he has no significant signs of fluid overload. His chest x-ray is normal. He is oxygenating well, 96% on room air. His respiratory rate is 18, effort is normal. We will consult cardiology. I believe at this time it is reasonable to treat patient with anticoagulants and close follow-up. - Vital Signs Vital signs: Temp Pulse Resp BP Pulse Ox 98.3 F 66 15 137/89 H 95 03/06/19 20:22 03/07/19 00:55 03/07/19 00:55 03/07/19 00:55 03/07/19 00:55 - Laboratory Result Diagrams: 03/06/19 21:50 03/06/19 21:50 Laboratory results interpreted by me: 03/06/19 21:50 BUN 30 H Creatinine 1.47 H Est GFR ( Amer) 58 L Est GFR (Non-Af Amer) 48 L Glucose 114 H ALT 19 L - Diagnostic Test Radiology reviewed: Reports reviewed Radiology results interpreted by me: 03/06/19 23:25 Chest X-Ray 03/06/19 21:18 IMPRESSION: No acute cardiopulmonary abnormalities. copyright 2010 [employer]- All Rights Reserved - EKG Interpretation by Me Additional EKG results interpreted by me: 03/06/19 23:25 Atrial fibrillation with a rate of 70 bpm. Left axis deviation. IVCD. Nonspecific ST changes, but no acute changes concerning for ischemia or infarction. This was changed from prior study. Repeat EKG shows less of wandering baseline, still atrial fibrillation and left axis deviation. Discharge - Discharge Clinical Impression: Atrial fibrillation Qualifiers: Atrial fibrillation type: unspecified Qualified Code(s): I48.91 - Unspecified atrial fibrillation Condition: Stable Disposition: HOME, SELF-CARE Instructions: Atrial Fibrillation ([facility]) Additional Instructions: It is vitally important that you take all of your medications as prescribed, at home and new. Start the Xarelto tomorrow evening. Contact Dr. Cruz's office first thing on Saturday, for an appointment to be seen within 48 hours. If you develop chest pain, difficulty breathing, or any other new or concerning symptoms, return immediately to the emergency department for evaluation. Prescriptions: Rivaroxaban [Xarelto] 20 mg PO DAILY #14 tablet Referrals: [facility] [Primary Care Provider] - Follow up as needed REENA CRUZ MD [ACTIVE STAFF] - Follow up as needed
[2019-03-06] MEDS ORDERED: RIVAROXABAN 10 MG TABLET PO ONE (23:32)
[2019-03-07] MEDS ORDERED: RIVAROXABAN 10 MG TABLET ONE (00:36)
[2019-03-07 01:13] VITALS: BP 137/89
--- NOTE | 2019-03-07 10:15 | EKG REPORT ---
SEVERITY:- ABNORMAL ECG - ATRIAL FIBRILLATION, V-RATE 55-84 LEFT AXIS DEVIATION PROBABLE LEFT VENTRICULAR HYPERTROPHY : Confirmed by: Ori Yañez MD 07-Mar-2019 10:15:12
--- NOTE | 2019-03-08 09:38 | EKG REPORT ---
SEVERITY:- ABNORMAL ECG - ATRIAL FIBRILLATION NONSPECIFIC IVCD WITH LAD LEFT VENTRICULAR HYPERTROPHY : Confirmed by: Ori Yañez MD 08-Mar-2019 09:37:48
== END 2019-03-07 00:55 | disposition home or self-care (01) ==
LOC: ER 20:16
DX: I48.91 Unspecified atrial fibrillation (principal); R06.9 Unspecified abnormalities of breathing; I10 Essential (primary) hypertension
CPT/HCPCS: 93005; 99285; 36415; 83735; 84443; 85025; 85610; 85730; 80053; 84484; 71046; 93010; A9270

== ENCOUNTER 2019-08-15 08:16 | Emergency (ER) | payer OTHER, MEDICARE ==
[2019-08-15 09:33] LABS: ABSOLUTE MONOCYTES (AUTO) 0.2 10^3/uL (0.1-1.4); ABSOLUTE NEUT (AUTO) 6.1 10^3/uL (1.7-8.2); BASOPHILS % (AUTO) 0.3 % (0-2); EOSINOPHILS % (AUTO) 0.7 % (0-6); HEMATOCRIT 42.4 % (37.9-51.0); HEMOGLOBIN 14.3 g/dL (13.5-17.0); LYMPHOCYTES % (AUTO) 13.8 % (13-45); MEAN CORPUSCULAR HEMOGLOBIN 28.4 pg (27.0-33.4); MEAN CORPUSCULAR HGB CONC 33.7 g/dL (32.0-36.0); MEAN CORPUSCULAR VOLUME 84 fl (80-97); MONOCYTES % (AUTO) 2.8 % (3-13); PLATELET COUNT 225 10^3/uL (150-450); RED BLOOD COUNT 5.03 10^6/uL (4.35-5.55); RED CELL DISTRIBUTION WIDTH 14.8 % (11.5-14.0); SEGMENTED NEUTROPHILS % (AUTO) 82.4 % (42-78); TOTAL CELLS COUNTED % (AUTO) 100 %; WHITE BLOOD COUNT 7.4 10^3/uL (4.0-10.5)
--- NOTE | 2019-08-15 09:43 | ER Document Report ---
ED Medical Screen (RME) - General Chief Complaint: Urinary Problem Stated Complaint: URINARY PROBLEMS Time Seen by Provider: 08/15/19 09:08 Primary Care Provider: SY,PAMELA [Primary Care Provider] - Follow up as needed Mode of Arrival: Ambulatory Information source: Patient Notes: Patient presents emergency department with complaints of hematuria for the last couple days. Denies pain. Denies problems voiding. Reports he recently was started on Xarelto 1 month ago. I have greeted and performed a rapid initial assessment of this patient. A comprehensive ED assessment and evaluation of the patient, analysis of test results and completion of the medical decision making process will be conducted by additional ED providers. TRAVEL OUTSIDE OF THE [place] IN LAST 30 DAYS: No - Related Data Allergies/Adverse Reactions: Penicillins Allergy (Unknown, Verified 08/15/19 08:58) as child Home Medications: potassium chloride. amlodipine besylate. amitriptyline. carvedilol. allopurinol. hydralazine. xarelto. lisinopril. prednisone. azithromycin Past Medical History - Social History Chew tobacco use (# tins/day): No Frequency of alcohol use: None Drug Abuse: None - Past Medical History Cardiac Medical History: Reports: Hx Hypercholesterolemia, Hx Hypertension Neurological Medical History: Denies: Hx Seizures Renal/ Medical History: Denies: Hx Peritoneal Dialysis Musculoskeltal Medical History: Reports Hx Arthritis, Reports Hx Gout Past Surgical History: Reports: Hx Cholecystectomy, Hx Herniorrhaphy - Ventral hernia, Hx Inguinal Hernia - Left inguinal hernia, Hx Orthopedic Surgery - Carpal tunnel release - Immunizations Hx Diphtheria, Pertussis, Tetanus Vaccination: Yes Physical Exam - Vital signs Vitals: Temp Pulse Resp BP Pulse Ox 98.4 F 69 16 150/68 H 96 08/15/19 08:43 08/15/19 08:43 08/15/19 08:43 08/15/19 08:43 08/15/19 08:43 Course - Vital Signs Vital signs: Temp Pulse Resp BP Pulse Ox 98.4 F 69 16 150/68 H 96 08/15/19 08:43 08/15/19 08:43 08/15/19 08:43 08/15/19 08:43 08/15/19 08:43 - Laboratory Result Diagrams: 08/15/19 09:15 08/15/19 09:15 Laboratory results interpreted by me: 08/15/19 09:15 RDW 14.8 H [place] % (Auto) 2.8 L Seg Neutrophils % 82.4 H Doctor's Discharge - Discharge Referrals: [facility] [Primary Care [facility]] - Follow up as needed
[2019-08-15 09:44] LABS: APPEARANCE,URINE CLOUDY; BILIRUBIN,URINE NEGATIVE (NEGATIVE); COLOR,URINE RED; GLUCOSE, URINE 50 mg/dL (NEGATIVE); KETONES,URINE NEGATIVE (NEGATIVE); LEUKOCYTE ESTERASE,URINE NEGATIVE (NEGATIVE); NITRITE,URINE NEGATIVE (NEGATIVE); PROTEIN,URINE 100 mg/dL (NEGATIVE); URINE SPECIFIC GRAVITY 1.017; UROBILINOGEN,URINE NEGATIVE mg/dL (<2.0)
[2019-08-15 09:54] LABS: ALBUMIN 4.4 g/dL (3.5-5.0); ALKALINE PHOSPHATASE 80 U/L (38-126); ANION GAP 13 (5-19); ASPARTATE AMINO TRANSFERASE 24 U/L (17-59); BILIRUBIN,DIRECT 0.3 mg/dL (0.0-0.4); BILIRUBIN,TOTAL 0.7 mg/dL (0.2-1.3); BLOOD UREA NITROGEN 20 mg/dL (7-20); CALCIUM 9.3 mg/dL (8.4-10.2); CARBON DIOXIDE 28 mmol/L (22-30); CHLORIDE 100 mmol/L (98-107); GLUCOSE 133 mg/dL (75-110); POTASSIUM 4.2 mmol/L (3.6-5.0); TOTAL PROTEIN 8.2 g/dL (6.3-8.2)
--- NOTE | 2019-08-15 10:44 | RADIOLOGY REPORT (SQ) ---
EXAM DESCRIPTION: U/S RETROPERITON LTD COMPLETED DATE/TIME: 08/15/2019 10:15 am REASON FOR STUDY: hematuria COMPARISON: CT 2018. TECHNIQUE: Dynamic and static grayscale images acquired of the kidneys and bladder and recorded on P ACS. Additional selected color Doppler and spectral images recorded. LIMITATIONS: None. FINDINGS: RIGHT KIDNEY: Normal size. Normal echogenicity. No solid or suspicious masses. No hydronep hrosis. No calcifications. LEFT KIDNEY: Normal size. Normal echogenicity. No solid or suspicious masses. Several cysts, larges t measuring just under 4 cm. Slight renal pelvic dilatation, just under 1 cm. No jose antonio hydronephros is, however. No hydronephrosis. No calcifications. BLADDER: Bladder volume 27 cc. No mass or stones, relatively nondistended. OTHER FINDINGS: Prostate measures 24 cc. IMPRESSION: NORMAL RENAL AND BLADDER ULTRASOUND. COMMENT: 1. No suspicious masses or stones or definite hydronephrosis, allowing for minimal left renal pelvic dilatation which is of uncertain clinical significance. TECHNICAL DOCUMENTATION: JOB ID: [id number] [employer]- All Rights Reserved Reading location - IP/workstation name: [email or web address]
--- NOTE | 2019-08-15 11:35 | ER Document Report ---
ED General - General Chief Complaint: Urinary Problem Stated Complaint: URINARY PROBLEMS Time Seen by Provider: 08/15/19 09:08 Primary Care Provider: SY,PAMELA [Primary Care Provider] - Follow up as needed Mode of Arrival: Ambulatory TRAVEL OUTSIDE OF THE [place] IN LAST 30 DAYS: No - HPI Notes: Patient is a 69-year-old male who presents emergency department for evaluation. He was started on Xarelto about 6 weeks ago for his atrial fibrillation. He has had a recent cough and upper respiratory infection, for which he states he has been given Zithromax and prednisone. He denies any fevers or chills. No flank pain. No vomiting. He denies any dysuria, urinary frequency. He states he just notices over the last several days that his urine has been more dark. He has been drinking more fluids without any significant change. On further questioning, however, he states he urinated about an hour ago and states that it looked much improved. He denies any pain of any sort. - Related Data Allergies/Adverse Reactions: Penicillins Allergy (Unknown, Verified 08/15/19 08:58) as child Home Medications: potassium chloride. amlodipine besylate. amitriptyline. carvedilol. allopurinol. hydralazine. xarelto. lisinopril. prednisone. azithromycin Past Medical History - General Information source: Patient - Social History Smoking Status: Never Smoker Chew tobacco use (# tins/day): No Frequency of alcohol use: None Drug Abuse: None Family History: Reviewed & Not Pertinent Patient has suicidal ideation: No Patient has homicidal ideation: No - Past Medical History Cardiac Medical History: Reports: Hx Atrial Fibrillation, Hx Hypercholesterolemia, Hx Hypertension Neurological Medical History: Denies: Hx Seizures Renal/ Medical History: Denies: Hx Peritoneal Dialysis Musculoskeletal Medical History: Reports Hx Arthritis, Reports Hx Gout Past Surgical History: Reports: Hx Abdominal Surgery - hernia, Hx Cholecystectomy, Hx Herniorrhaphy - Ventral hernia, Hx Inguinal Hernia - Left inguinal hernia, Hx Orthopedic Surgery - Carpal tunnel release - Immunizations Hx Diphtheria, Pertussis, Tetanus Vaccination: Yes Review of Systems - Review of Systems Constitutional: No symptoms reported EENT: No symptoms reported Cardiovascular: No symptoms reported Respiratory: No symptoms reported Gastrointestinal: No symptoms reported Genitourinary: See HPI Male Genitourinary: No symptoms reported Musculoskeletal: No symptoms reported Skin: No symptoms reported Neurological/Psychological: No symptoms reported Physical Exam - Vital signs Vitals: Temp Pulse Resp BP Pulse Ox 98.4 F 69 16 150/68 H 96 08/15/19 08:43 08/15/19 08:43 08/15/19 08:43 08/15/19 08:43 08/15/19 08:43 - Notes Notes: Vital signs reviewed, please refer to chart. Head is normocephalic, atraumatic. Pupils equal round, reactive to light. Neck is supple without meningismus. Heart is regular rate and rhythm. Lungs are clear to auscultation bilaterally. Abdomen is soft, nontender, normoactive bowel sounds throughout. No CVA tenderness noted. Extremities without cyanosis, clubbing. Posterior calves are nontender. Peripheral pulses are equal. Skin is warm and dry. Patient is awake, alert, neurological exam is nonfocal. Course - Re-evaluation Re-evalutation: 08/15/19 11:42 Patient presents emergency department for evaluation. He had laboratory investigations and ultrasound was ordered through triage. His ultrasound was unremarkable. His laboratory investigations did reveal large hematuria. I suspect this is in part secondary to the Xarelto. Certainly there are multiple etiologies for this. He does not have any signs of urinary tract infection. His urine was sent for culture, but I am not inclined to treat at this time. I explained to the patient that if any bacteria grow in his culture he will be contacted. He was amenable to this plan. Otherwise, in an elderly man with gross hematuria, this does need follow-up with urology. I explained to the patient that this may be benign, but could be caused by something more serious, and close follow-up was necessary. He voiced understanding to this as well. He is to return to the emergency department with worsening or new concerning symptoms of any sort. - Vital Signs Vital signs: Temp Pulse Resp BP Pulse Ox 98.4 F 69 16 150/68 H 96 08/15/19 08:43 08/15/19 08:43 08/15/19 08:43 08/15/19 08:43 08/15/19 08:43 - Laboratory Result Diagrams: 08/15/19 09:15 08/15/19 09:15 Laboratory results interpreted by me: 08/15/19 08/15/19 08/15/19 09:05 09:15 09:15 RDW 14.8 H [place] % (Auto) 2.8 L Seg Neutrophils % 82.4 H Creatinine 1.35 H Est GFR (MDRD) Non-Af 53 L Glucose 133 H Urine Protein 100 H Urine Glucose (UA) 50 H Urine Blood LARGE H - Diagnostic Test Radiology reviewed: Reports reviewed Radiology results interpreted by me: 08/15/19 11:43 Renal Ultrasound 08/15/19 09:24 IMPRESSION: NORMAL RENAL AND BLADDER ULTRASOUND. Discharge - Discharge Clinical Impression: Hematuria Condition: Stable Disposition: HOME, SELF-CARE Instructions: Hematuria ([facility]) Additional Instructions: Continue to take your home medications as prescribed. There was some blood in your urine, it has been sent for culture. You will be contacted if any bacteria grow. Please follow-up with primary care. You need further evaluation by urology to find the etiology of this bleeding. If you develop increased bleeding, weakness, fevers, vomiting, or inability to urinate, or any other new or concerning symptoms, please return immediately to the emergency department for evaluation. [email or web address] [address] [place] [facility] [email or web address] [place] Referrals: [facility] [Primary Care Provider] - Follow up as needed
[2019-08-15 11:58] VITALS: BP 148/76
== END 2019-08-15 11:55 | disposition home or self-care (01) ==
LOC: ER 08:16
DX: R31.9 Hematuria, unspecified (principal); R39.198 Other difficulties with micturition; I48.91 Unspecified atrial fibrillation; Z79.01 Long term (current) use of anticoagulants; Z79.899 Other long term (current) drug therapy
CPT/HCPCS: 36415; 76775; 80053; 81001; 83690; 85025; 87086; 99284